=== PATIENT | female | born 1995 | race African-American/Black ===

== ENCOUNTER 2018-07-30 15:25 | Inpatient (IN) | payer OTHER ==
[~2018-07-30] VITALS: Ht 160 cm; Wt 159.5 kg
[2018-07-30 15:29] VITALS: BP 141/100
[2018-07-30 16:19] LABS: ALBUMIN 3.7 gm/dl (3.1-4.5); ALKALINE PHOSPHATASE 148 U/L (45-117); BUN 9 mg/dl (7-24); CHLORIDE 105 mmol/L (98-107); CREATININE 0.84 mg/dL (0.55-1.02); LIPASE 95 U/L (73-393); POTASSIUM 4.5 mmol/L (3.5-5.1); SGOT/AST 32 IU/L (3-35); SGPT/ALT 28 U/L (12-78); SODIUM 140 mmol/L (136-145)
[2018-07-30 16:24] LABS: BETA-HCG, QUANT < 1.0 mIU/mL (1-3); ETHYL ALCOHOL < 3.0 mg/dl (<3)
[2018-07-30] MEDS ORDERED: SUBOXONE 8 MG-1 EACH SL (16:37)
[2018-07-30 16:52] LABS: BASO % 0.7 % (0.0-1.0); EOS # 0.1 10*3/uL (0.0-0.4); EOS % 1.7 % (1.0-4.0); HEMATOCRIT 43.2 % (37.0-47.0); HEMOGLOBIN 13.9 g/dl (12.0-16.0); LYMPH # 1.7 10*3/uL (1.3-4.4); LYMPH % 28.4 % (27.0-41.0); MEAN CELL VOLUME 93.3 fl (81.0-99.0); MEAN CORPUSCULAR HGB CONC 32.2 g/dl (33.0-37.0); MEAN PLATELET VOLUME 11.4 fl (9.6-12.3); MONO # 0.3 10*3/uL (0.1-1.0); MONO % 5.4 % (3.0-9.0); NEUT # 3.8 10*3/uL (2.3-7.9); NEUT % 63.5 % (47.0-73.0); PLATELET COUNT AUTOMATED 245 10*3/uL (130-400); RED BLOOD COUNT 4.63 10*6/uL (4.10-5.10); RED CELL DISTRI WIDTH 13.3 % (0-14.5)
[2018-07-30 16:58] VITALS: BP 158/90
--- NOTE | 2018-07-30 17:00 | NUR ---
22 year old FEMALE admitted to room # 412-2 for stabilization. 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 Compliant with admission procedure. Patient denies any anxiety, but is unable to sit still, taps toes to floor continuously, looks about room, unable to focus eyes on nurse during interview. See assessment forms for additional information about patient status.
[2018-07-30 17:12] VITALS: BP 133/101
--- NOTE | 2018-07-30 19:40 | NUR ---
INFORMED OF WOUND TO BACK OF NECK. SAID SHE WOULD PUT IN ORDERS.
[2018-07-30 20:00] VITALS: BP 126/87
--- NOTE | 2018-07-30 20:48 | NUR ---
Patient is awake, alert, and oriented with easy and regular respers on room air. Assessment is complete with no s/s of distress noted at this time. Patient does c/o "stomach being in knots" so PRN Maalox provided to help. Bed is low, locked, and call light is within reach. See shift assessment.
--- NOTE | 2018-07-30 21:30 | NUR ---
PRN Maalox seems effective, patient is sleeping with easy and regular respers on room air. Call light is within reach.
[2018-07-31] VITALS: BP 135/80
--- NOTE | 2018-07-31 01:36 | NUR ---
0000 and 0200 Medications given at this time, patient tolerated well. Call light is within reach. Patient is requesting something for body aches, stomach cramps, and anxiety. Call light is within reach.
--- NOTE | 2018-07-31 02:11 | NUR ---
PRN Robaxin, Bentyl, and vistaril given at this time for previous complaints. Patient tolerated well, call light is within reach. Will monitor effect.
--- NOTE | 2018-07-31 06:38 | NUR ---
0600 Medication given at this time, patient tolerated well. Call light is within reach.
--- NOTE | 2018-07-31 06:54 | NUR ---
YVETTE GOODE [id number] Please refer to the physician's history and physical for past medical history, comorbid conditions, and allergies. Diagnosis: OPIATE WITHDRAWAL OPIATE DEPENDENCE Boston Score: 22,LOW OR NO RISK WOUND DESCRIPTIONS: Location of the wound: base of posterior aspect of neck Thickness: Partial Size: 0.3cm x 0.4cm x 0.1cm Tunneling: none Undermining: none Sinus Tract: none Presence of Exudate: Serous Amount: Light Color: Red Odor: None Periwound Skin Appearance: Scar Wound edges: approximated Pain (associated with wound): none at time of assessment How does patient state this happened? pt stated she picked it open several days ago. Patient stated she is supposed to take medication to prevent the itching but she hasn't been taking it she stated when she leaves here she isn't returning home she will follow at [facility]. Surface the patient is resting on: Position Pro SKIN PREVENTION RECOMMENDATION: 1. Pressure redistribution support surface as appropriate 2. Elevate heels 3. Remove boots/TEDS every shift and reapply 4. Head of bed 30 degrees as tolerated 5. Assess nutrition and hydration 6. Manage moisture 7. Avoid the use of containment devices while in bed 8. Use absorptive products on surfaces limit layers of linens on bed 9. Turn and reposition every 1-2 hours in bed and every 1 hour in chair as tolerated 10. Weight shifts every 15 minutes while up in chair 11. Offloading with pillows or device to keep heels elevated off bed 12. Monitor skin at least every shift 13. Inspect under medical devices twice a day WOUND TREATMENT RECOMMENDATIONS: Partial thickness guidelines: Cleanse base of posterior aspect of neck with nss and apply sureprep around the area hydrogel to wound bed and cover with bandaid. Recommend follow up for wound care in outpatient setting patient being discharge to another facility at this time.
[2018-07-31 08:00] VITALS: BP 133/92
--- NOTE | 2018-07-31 08:14 | NUR ---
PT MEDICATED WITH ROBAXIN AT THIS TIME PER ORDER FOR COMPLAINTS OF MUSCLE ACHES. WILL MONITOR.
--- NOTE | 2018-07-31 09:18 | NUR ---
Dr. Ca notified of wound care recommendations.
--- NOTE | 2018-07-31 09:45 | NUR ---
PT SLEEPING AT THIS TIME; MEDICATION APPEARS TO HAVE BEEN EFFECTIVE.
[2018-07-31 12:00] VITALS: BP 104/68
--- NOTE | 2018-07-31 13:53 | NUR ---
PATIENT MEETS [facility]. PATIENT HAS BEEN SCHEDULED TO BE ADMITTED TO [facility] ON THURSDAY, AUGUST 02, 2018 AT 2:00PM FOR INPATIENT TREATMENT. PATIENT AGREES TO HER AFTERCARE PLAN. LEORA GARVEY MS [employer] COVER INSPECTOR
--- NOTE | 2018-07-31 14:05 | NUR ---
PATIENT MEDICATED WITH VISTARIL AND ROBAXIN AT THIS TIME PER PRN ORDER FOR COMPLAINTS OF AGITATION AND ACHES/RESTLESS LEGS. WILL MONITOR.
--- NOTE | 2018-07-31 15:30 | NUR ---
PER PATIENT, PRN MEDICATION HAS BEEN EFFECTIVE - NO FURTHER COMPLAINTS.
[2018-07-31 16:00] VITALS: BP 111/63
[2018-07-31 19:34] LABS: BILIRUBIN NEGATIVE (NEGATIVE); BLOOD NEGATIVE (NEGATIVE); CLARITY CLOUDY (CLEAR); COLOR YELLOW (YELLOW); GLUCOSE NEGATIVE (NEGATIVE); KETONE NEGATIVE (NEGATIVE); LEUKO ESTERASE 1+ (NEGATIVE); NITRITE NEGATIVE (NEGATIVE); UROBILINOGEN 0.2 E.U./dl (0.2-1.0)
[2018-07-31 19:40] LABS: RBC 0-2 rbc/hpf (0-2)
[2018-07-31 19:41] LABS: BACTERIA 4+; EPITHELIAL CELLS 16-20; MUCOUS TRACE
[2018-07-31 19:43] LABS: URINE AMPHETAMINES < 1000 (1000ng/ml); URINE BARBITURATES < 200 (200ng/ml); URINE BENZODIAZEPINES > 200 (200ng/ml); URINE CANNABINOIDS (THC) > 50 (50ng/ml); URINE COCAINE < 300 (300ng/ml); URINE METHADONE < 300 (300ng/ml); URINE OPIATES > 300 (300ng/ml)
[2018-07-31 19:44] LABS: URINE PHENCYCLIDINE < 25 (25ng/ml)
[2018-07-31 20:00] VITALS: BP 98/49
--- NOTE | 2018-07-31 22:19 | NUR ---
Patient reports the following symptoms of withdrawal: body aches, leg pain, nausea and cravings. Patient given scheduled/PRN medication to control withdrawal symptoms. Close observation will be maintained.
--- NOTE | 2018-07-31 23:30 | NUR ---
Patient resting. Responding to scheduled medications with fewer complaints of pain and anxiety.
[2018-08-01] VITALS: BP 103/52
--- NOTE | 2018-08-01 03:11 | NUR ---
PATIENT SLEEPING. NO S/S OF DISTRESS NOTED AT THIS TIME. CALL LIGHT IN REACH
--- NOTE | 2018-08-01 05:32 | NUR ---
SLEEPING. EASILY AROUSABLE FOR AM MEDICATIONS. OFFERED PATIENT PRN MEDICATIONS. DENIES NEED FOR THEM AT THIS TIME. ENCOURAGE TO USE CALL LIGHT IF SHE NEEDS SOMETHING.
[2018-08-01 08:00] VITALS: BP 135/100
--- NOTE | 2018-08-01 09:10 | NUR ---
PATIENT MEDICATED WITH VISTARIL AND ROBAXIN PER ORDER FOR COMPLAINTS OF AGITATION AND MUSCLE ACHES. WILL MONITOR FOR EFFECTIVENESS.
--- NOTE | 2018-08-01 09:30 | NUR ---
Dr. Ca notified of wound care recommendations.
--- NOTE | 2018-08-01 10:40 | NUR ---
PRE PATIENT, PRN MEDS HAVE BEEN EFFECTIVE. NO FURTHER COMPLAINTS.
--- NOTE | 2018-08-01 11:30 | NUR ---
PT MEDICATED WITH REQUIP AND MOTRIN AT THIS TIME PER ORDER FOR COMPLAINTS OF ACHES IN LEGS AND RESTLESS LEGS. WILL MONITOR.
[2018-08-01 12:00] VITALS: BP 121/84
--- NOTE | 2018-08-01 12:45 | NUR ---
PER PATIENT, PRN MEDICATIONS HAVE BEEN EFFECTIVE. NO FURTHER COMPLAINTS.
--- NOTE | 2018-08-01 15:34 | NUR ---
PATIENT MEDICATED WITH ROBAXIN AT THIS TIME PER ORDER FOR COMPLAINTS OF MUSCLE ACHES IN LEGS. WILL MONITOR FOR EFFECTIVENESS.
[2018-08-01 16:00] VITALS: BP 110/83
--- NOTE | 2018-08-01 17:00 | NUR ---
PER PATIENT, PRN MEDICATION HAS BEEN EFFECTIVE. NO FURTHER COMPLAINTS.
[2018-08-01 20:00] VITALS: BP 109/75
--- NOTE | 2018-08-01 20:16 | NUR ---
PATIENT MEDICATED WITH PRN BENTYL, VISTARIL AND MOTRIN FOR C/O STOMACH CRAMPING, ANXIETY AND FULL BODY ACHES. PLEASANT AND COOPERATIVE FOR SHIFT ASSESSMENT. RESPIRATIONS EASY/REG ON RA. NO FURTHER VOICED COMPLAINTS. CALL LIGHT IN REACH.
[2018-08-02] VITALS: BP 130/85
--- NOTE | 2018-08-02 02:36 | NUR ---
PATIENT SLEEPING. NO S/S OF DISTRESS NOTED. RESPIRATIONS EASY/REG. CALL LIGHT IN REACH
[2018-08-02 07:00] LABS: BASO % 0.8 % (0.0-1.0); EOS # 0.1 10*3/uL (0.0-0.4); EOS % 1.6 % (1.0-4.0); HEMATOCRIT 43.4 % (37.0-47.0); LYMPH # 1.8 10*3/uL (1.3-4.4); LYMPH % 35.6 % (27.0-41.0); MEAN CELL VOLUME 93.5 fl (81.0-99.0); MEAN CORPUSCULAR HGB 30.2 pg (27.0-31.0); MEAN CORPUSCULAR HGB CONC 32.3 g/dl (33.0-37.0); MEAN PLATELET VOLUME 11.9 fl (9.6-12.3); MONO # 0.3 10*3/uL (0.1-1.0); MONO % 5.1 % (3.0-9.0); NEUT # 2.8 10*3/uL (2.3-7.9); NEUT % 56.5 % (47.0-73.0); PLATELET COUNT AUTOMATED 233 10*3/uL (130-400); RED BLOOD COUNT 4.64 10*6/uL (4.10-5.10); RED CELL DISTRI WIDTH 13.2 % (0-14.5); WHITE BLOOD COUNT 4.9 10*3/uL (4.8-10.8)
[2018-08-02 07:30] LABS: CREATININE 0.89 mg/dL (0.55-1.02)
[2018-08-02 08:00] VITALS: BP 139/106
--- NOTE | 2018-08-02 09:23 | NUR ---
Dr. Go notified of wound care recommendations.
--- NOTE | 2018-08-02 10:16 | NUR ---
REFUSED DISCHARGE MEASUREMENTS/PICTURES OF WOUNDS.
[2018-08-02] MEDS ORDERED: AMLODIPINE BESYL5 MG PO (10:18)
--- NOTE | 2018-08-02 11:16 | NUR ---
[facility] Discharge instructions reviewed with patient/family. Patient receptive and verbalizes understanding. Follow-up care arranged. Written instructions given to patient/family. LEIDA HOROWITZ
== END 2018-08-02 11:16 | disposition home or self-care (01) | DRG 897 ==
LOC: ED 15:25 → 4E 15:39 → EDHOLD 15:39 → 4E 16:03
PROVIDERS: Emergency Medicine; ADMIT Internal Medicine
DX: F11.23 Opioid dependence with withdrawal (principal); Z68.44 Body mass index [BMI] 60.0-69.9, adult; Z71.6 Tobacco abuse counseling; K21.9 Gastro-esophageal reflux disease without esophagitis; F11.29 Opioid dependence with unspecified opioid-induced disorder; E66.01 Morbid (severe) obesity due to excess calories; F17.210 Nicotine dependence, cigarettes, uncomplicated; F19.10 Other psychoactive substance abuse, uncomplicated; I10 Essential (primary) hypertension; F32.9 Major depressive disorder, single episode, unspecified; Z88.1 Allergy status to other antibiotic agents; Z83.3 Family history of diabetes mellitus; Z79.899 Other long term (current) drug therapy